=== PATIENT | female | born 1935 | race African-American/Black ===

== ENCOUNTER 2017-06-01 15:51 | Inpatient (IN) | payer OTHER ==
[~2017-06-01] VITALS: Ht 152.4 cm; Wt 69.9 kg
[~2017-06-01 15:51] MED LIST: CEFADROXIL500 MG PO; HYZAAR 100-121 UDTAB PO; METFORMIN HCL500 M2 PO
[2017-06-01] MEDS ORDERED: GLIMEPIRIDE2 MG (16:23)
== END 2017-06-20 16:52 | disposition designated cancer center or children's hospital (05) | DRG 853 ==
LOC: ER 15:51 → MEDI 06-02 06:26 → SEC-K 06-02 06:26 → MEDI 06-02 11:19 → MEDJ 06-07 11:56
PROVIDERS: Specialist
PROC: 0HBMXZX Excision of Right Foot Skin, External Approach, Diagnostic (ICD-10-PCS; 2017-06-03)
PROC: 0JBQ0ZZ Excision of Right Foot Subcutaneous Tissue and Fascia, Open Approach (ICD-10-PCS; principal; 2017-06-03 15:45)
PROC: 8E0ZXY6 Isolation (ICD-10-PCS; 2017-06-07)
PROC: 02HV33Z Insertion of Infusion Device into Superior Vena Cava, Percutaneous Approach (ICD-10-PCS; 2017-06-12)
DX: A41.9 Sepsis, unspecified organism (principal); A48.0 Gas gangrene; L02.611 Cutaneous abscess of right foot; L03.113 Cellulitis of right upper limb; E11.52 Type 2 diabetes mellitus with diabetic peripheral angiopathy with gangrene; L03.115 Cellulitis of right lower limb; E11.65 Type 2 diabetes mellitus with hyperglycemia; I10 Essential (primary) hypertension